=== PATIENT | female | born 1955 | race Caucasian/White ===

== ENCOUNTER 2019-12-23 15:21 | Inpatient (IN) | payer OTHER, SELFPAY ==
[2019-12-23] VITALS (7 sets, daily range): BP systolic 155–189; BP diastolic 67–93; PULSE 62–84; RESP 18–22; TEMP 36.7–37.1; O2SAT 97–100; BMI 32.3; BMI 34.4; BMI 34.5
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
[2019-12-23 16:58] LABS: Absolute Lymphocyte Count 1.18 X10^3/uL (0.83-4.51); Absolute Neutrophil Count 6.7 X10^3/uL (2.0-7.7); Basophil# 0.03 X10^3/uL; Basophil% 0.4 % (0-1); Eosinophil# 0.02 X10^3/uL; Eosinophils% 0.2 % (0-5); Hematocrit 45.3 % (37-47); Lymphocyte # 1.18 X10^3/ul (4.0); Mean Corp Hgb Conc 33.1 g/dL (32-36); Mean Corpuscular Hgb 29.9 pg (27.0-32.0); Mean Corpuscular Volume 90.4 fL (81-99); Monocyte# 0.45 X10^3/uL; Monocyte% 5.4 % (0-10); NRBC Flagged by Analyzer 0 % (0-5); Neutrophil # 6.65 X10^3/uL (2.7-7.7); Neutrophil % 79.2 % (47-70); Platelet Count 183 K/mm3 (150-450); RBC Distribution Width CV 13.4 % (11.6-14.6); RBC Distribution Width SD 44.7 fl (35.1-43.9); Red Blood Count 5.01 M/mm3 (4.2-5.4); White Blood Count 8.4 K/mm3 (4.4-11.0)
[2019-12-23 17:12] LABS: Anion Gap 7 (5-15); BUN 14 mg/dL (7-18); BUN/Creat Ratio 15.2 RATIO (10-20); Calcium,Total 9.1 mg/dL (8.5-10.1); Chloride 106 mmol/L (98-107); Creatinine, Serum 0.92 mg/dL (0.55-1.02); EST Glomerular Filtration Rate 65 mL/min (>60); Est Glom Filt Rate - Afr Amer 79 mL/min (>60); Estimated Creatinine Clearance 70.92 ml/min; Glucose 107 mg/dL (74-106); Potassium 3.9 mmol/L (3.5-5.1); Sodium Level 138 mmol/L (136-145)
[2019-12-23] MEDS: clonazePAM 0.5 MG Tablet PO (17:28)
--- NOTE | 2019-12-23 17:50 | ED.RN ---
this nurse assisted pt up out of bed to w/c and to bathroom. pt slow to move and required assistance to get up out of w/c to toilet. pt back to room and seated in w/c with call light in hand.
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
[2019-12-23] MEDS: Acetaminophen 325 MG Tablet 650 MG PO (21:55)
[2019-12-23] MEDS: 0.9% Normal Saline 1,000 ML 75 ML IV (21:56)
[2019-12-23] MEDS: oxyCODONE 5 MG Tablet PO (21:56)
[2019-12-23] MEDS: 0.9% Saline Lock 10 ML Syringe IV (21:56)
[2019-12-23 22:10] LABS: AST(SGOT) 29 U/L (15-37); Alanine Aminotransfer ALT/SGPT 26 U/L (13-56); Albumin, Serum 3.8 g/dL (3.2-5.0); Alkaline Phosphatase 107 U/L (45-117); Bilirubin, Direct 0.15 mg/dL (0.00-0.30); Globulin 3.9 g/dL (2.2-4.2); Protein, Total 7.7 g/dL (6.4-8.2)
[2019-12-24 03:04] VITALS: PULSE 60
[2019-12-24] MEDS: Acetaminophen 325 MG Tablet 650 MG PO ×2 (05:23→11:26)
[2019-12-24] MEDS: oxyCODONE 5 MG Tablet PO ×2 (05:23→16:39)
[2019-12-24 05:30] VITALS: BP 131/54; PULSE 61; RESP 18; TEMP 36.7; O2SAT 97
[2019-12-24] MEDS: Levothyroxine 75 MCG Tablet PO (06:27)
[2019-12-24 06:39] LABS: Absolute Lymphocyte Count 1.49 X10^3/uL (0.83-4.51); Absolute Neutrophil Count 3.9 X10^3/uL (2.0-7.7); Basophil# 0.01 X10^3/uL; Basophil% 0.2 % (0-1); Eosinophil# 0.02 X10^3/uL; Eosinophils% 0.3 % (0-5); Hematocrit 39.3 % (37-47); Hemoglobin 12.9 g/dL (12.0-15.0); Lymphocyte # 1.49 X10^3/ul (4.0); Lymphocyte % 25.8 % (19-41); Mean Corp Hgb Conc 32.8 g/dL (32-36); Mean Corpuscular Volume 91.4 fL (81-99); Mean Platelet Vol. 11.1 fl (6.2-12.0); Monocyte# 0.36 X10^3/uL; Monocyte% 6.2 % (0-10); NRBC Flagged by Analyzer 0 % (0-5); Neutrophil # 3.87 X10^3/uL (2.7-7.7); Neutrophil % 67.2 % (47-70); Platelet Count 189 K/mm3 (150-450); RBC Distribution Width CV 13.7 % (11.6-14.6); White Blood Count 5.8 K/mm3 (4.4-11.0)
[2019-12-24 07:15] LABS: ALB/GLOB Ratio 0.9 RATIO (0.9-2.4); AST(SGOT) 18 U/L (15-37); Alanine Aminotransfer ALT/SGPT 21 U/L (13-56); Albumin, Serum 3.1 g/dL (3.2-5.0); Alkaline Phosphatase 81 U/L (45-117); Anion Gap 7 (5-15); BUN 13 mg/dL (7-18); Calcium,Total 8.1 mg/dL (8.5-10.1); Chloride 110 mmol/L (98-107); Creatinine, Serum 0.81 mg/dL (0.55-1.02); EST Glomerular Filtration Rate 76 mL/min (>60); Est Glom Filt Rate - Afr Amer 91 mL/min (>60); Estimated Creatinine Clearance 85.73 ml/min; Globulin 3.3 g/dL (2.2-4.2); Glucose 101 mg/dL (74-106); Potassium 3.8 mmol/L (3.5-5.1); Protein, Total 6.4 g/dL (6.4-8.2); Sodium Level 141 mmol/L (136-145)
[2019-12-24 07:50] VITALS: PULSE 46
[2019-12-24] MEDS: Pantoprazole Sodium 20 MG Tablet PO (08:43)
[2019-12-24 09:00] VITALS: BP 149/63; PULSE 60; RESP 16; TEMP 36.6; O2SAT 99
--- NOTE | 2019-12-24 09:43 | NURSING ---
Dr. Bahena's nurse called to get patient's name and bday. Same given- aware of consult.
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
[2019-12-24] MEDS: 0.9% Normal Saline 1,000 ML 75 ML IV (11:26)
[2019-12-24 11:41] LABS: Color, Urine Yellow (Yellow); Glucose, Dipstick Normal (Normal); Ketone-Dipstick Negative (Negative); Leukocyte Esterase-Dipstick 500 /ul (Negative); Nitrite-Dipstick Negative (Negative); Occult Blood-Urine 10 /ul (Negative); Protein-Dipstick 15 mg/dl (Negative); Specific Gravity, Urine 1.015 (1.002-1.030); Urine Bilirubin Dipstick Negative (Negative); Urine Clarity Sl. Cloudy (Clear); Urine Urobilinogen Normal (Normal)
[2019-12-24 12:06] LABS: Red Blood Cells-Urine 0-5 SEEN /hpf (0-5); Squamous Epithelial Cells - UA 0-5 SEEN /hpf (5-10); White Blood Cells 10-25 SEEN /hpf (0-5)
--- NOTE | 2019-12-24 12:06 | CASEMGMT ---
Insurance review for In-network facilities for [employer] PPO if transfer is recommended: [facility]) [facility]
[2019-12-24 12:07] LABS: Bacteria 1+ /hpf (None Seen); Mucous, Urine RARE /hpf (<or=2+)
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
[2019-12-24 14:00] VITALS: PULSE 64
[2019-12-24 14:15] VITALS: BP 134/54; PULSE 63; RESP 18; TEMP 36.8; O2SAT 98
[2019-12-24] MEDS: 0.9% Saline Lock 10 ML Syringe IV (14:19)
[2019-12-24] MEDS: clonazePAM 1 MG Tablet PO (16:40)
--- NOTE | 2019-12-24 18:49 | NURSING ---
report called to KRISS Hensley at [facility] for transfer.
== END 2019-12-24 19:16 | disposition short-term general hospital (02) | DRG 552 ==
LOC: ED 17:17 → MS3 20:24
PROVIDERS: Admitting Provider Internal Medicine; Emergency Provider Emergency Medicine; Referring Provider Internal Medicine; Visit Provider Family Medicine
DX: S32.010A Wedge compression fracture of first lumbar vertebra, initial encounter for closed fracture (principal); V53.6XXA Passenger in pick-up truck or van injured in collision with car, pick-up truck or van in traffic accident, initial encounter; Y93.9 Activity, unspecified; Y92.9 Unspecified place or not applicable; G24.9 Dystonia, unspecified; R27.0 Ataxia, unspecified; E03.9 Hypothyroidism, unspecified; F41.9 Anxiety disorder, unspecified; Z79.899 Other long term (current) drug therapy; K21.9 Gastro-esophageal reflux disease without esophagitis; M81.0 Age-related osteoporosis without current pathological fracture
CPT/HCPCS: 36415; 70450; 71260; 72125; 72128; 72131; 74177; 80048; 80053; 80076; 81001; 85025; 97162; 97166; 99285; J7030; Q9967; A4216